=== PATIENT | female | born 1960 | race Caucasian/White ===

== ENCOUNTER 2019-07-07 06:32 | Day surgery (SDC) | payer BC ==
[2019-07-07] MEDS ORDERED: Lidocaine 2% 5 ML SDV INJECT ONE (06:33)
[2019-07-07] MEDS ORDERED: Propofol 200 MG/20 ML SDV IV ONE (06:33)
[2019-07-07] MEDS ORDERED: Lactated Ringers 1,000 ML IV SCH (06:45)
[2019-07-07] MEDS ORDERED: Sodium Chloride 0.9% 10 ML Syringe FLUSH PRN (06:45)
--- NOTE | 2019-07-07 08:07 | PCM.PN ---
- General Info Date of Service: 07/07/19 - Review of Systems Systems Review Comment:: 58 y/o female with family history of colon cancer here for colonoscopy. She is medically stable to proceed. Her recent history and physical is reviewed and no significant changes are noted. Heart Regular - Lungs clear. I have discussed the proposed colonoscopy with the patient. She agrees to proceed accepting risks. - Patient Data Vitals - Most Recent: Last Vital Signs Temp 98.3 F 07/07/19 07:00 Pulse Resp 16 07/07/19 07:00 BP 98/60 07/07/19 07:00 Pulse Ox 96 07/07/19 07:00 Weight - Most Recent: 122 lb 12.76 oz Med Orders - Current: Current Medications Lactated Ringer's (Ringers, Lactated) 1,000 mls @ 125 mls/hr IV ASDIRECTED YU Last Admin: 07/07/19 07:15 Dose: 125 mls/hr Sodium Chloride (Saline Flush) 10 ml FLUSH ASDIRECTED PRN PRN Reason: Keep Vein Open - Problem List Review Problem List Initiated/Reviewed/Updated: Yes - My Orders Last 24 Hours: My Active Orders 07/06/19 Dinner Nothing Per Oral Diet [DIET] 07/07/19 06:45 Patient Status [ADT] Routine Patient to Empty Bladder [RC] ASDIRECTED Verify Patient Consent Obtain [RC] ASDIRECTED Lactated Ringers [Ringers, Lactated] 1,000 ml IV ASDIRECTED Sodium Chloride 0.9% [Saline Flush] 10 ml FLUSH ASDIRECTED PRN Peripheral IV Insertion Adult [OM.PC] Routine - Assessment Assessment:: Family History of colon cancer - Plan Plan:: Colonoscopy
--- NOTE | 2019-07-07 08:39 | PCM.OPNOTE ---
- General Post-Op/Procedure Note Date of Surgery/Procedure: 07/07/19 Operative Procedure(s): Colonoscopy Findings: Normal Colon Pre Op Diagnosis: Family History of Colon Cancer Post-Op Diagnosis: Normal Colon Anesthesia Technique: MAC Primary Surgeon: Andres Love Pathology: none Output, Urine Amount: 0 EBL in mLs: 0 Complications: None Condition: Good
[2019-07-07 10:47] VITALS: BP 112/80; PULSE 53
--- NOTE | 2019-07-07 12:39 | OR ---
DATE OF OPERATION: 07/07/2019 SURGEON: Andres Love MD PREOPERATIVE DIAGNOSIS: Family history of colon cancer. POSTOPERATIVE DIAGNOSIS: Normal colon. OPERATION PERFORMED: Colonoscopy. INDICATIONS FOR SURGERY: This 58-year-old female has a known family history of colon cancer. She comes today for high-risk screening colonoscopy. FINDINGS: The patient's colon appears normal today. No polyps or other gross abnormalities were seen. PROCEDURE IN DETAIL: The patient was taken to the procedure room. She was given intravenous sedation and with her in the left lateral decubitus position, digital rectal exam was performed showing no rectal masses. The Olympus colonoscope was inserted into the rectum. Retroflexed examination of the rectal canal was performed. The scope was then carefully advanced under direct visualization through the entire length of the colon until the cecum was reached. Cecal acquisition was confirmed by noting normal internal cecal anatomy including the appendiceal orifice and the ileocecal valve. After examining the cecum, the scope was slowly withdrawn sequentially re-examining the colonic segments until the entire colon and rectum had been fully examined. The scope was removed and the patient was taken from the procedure room in satisfactory condition. ESTIMATED BLOOD LOSS: Zero. COMPLICATIONS: None. PROGNOSIS: Good. /[id number]
== END 2019-07-07 09:48 | disposition home or self-care (01) ==
LOC: FB.SDS 06:32
PROVIDERS: ATTEND Surgery
DX: Z12.11 Encounter for screening for malignant neoplasm of colon (principal); Z80.0 Family history of malignant neoplasm of digestive organs
CPT/HCPCS: 45378; J2001; J2704; J7120

== ENCOUNTER 2024-05-05 08:27 | Day surgery (SDC) | payer BC, OTHER ==
[2024-05-05] MEDS ORDERED: Lidocaine 2% 100 MG/5 ML Syringe IVPUSH ONE (08:28)
[2024-05-05] MEDS ORDERED: Propofol 200 MG/20 ML SDV IV ONE (08:28)
[2024-05-05] MEDS ORDERED: Sodium Chloride 0.9% 10 ML Syringe FLUSH PRN (08:30)
[2024-05-05] MEDS: Lactated Ringers 1,000 ML IV SCH (09:30)
[2024-05-05 14:36] VITALS: BP 116/65; PULSE 53
== END 2024-05-05 12:52 | disposition home or self-care (01) ==
LOC: FB.SDS 08:27
PROVIDERS: ATTEND Surgery
DX: Z12.11 Encounter for screening for malignant neoplasm of colon (principal); E78.5 Hyperlipidemia, unspecified; Z79.82 Long term (current) use of aspirin; Z79.899 Other long term (current) drug therapy; Z80.0 Family history of malignant neoplasm of digestive organs
CPT/HCPCS: 00811; J2704; J7120